=== PATIENT | female | born 1955 | race Caucasian/White ===

== ENCOUNTER 2020-11-06 17:20 | Emergency (ER) | payer OTHER, MEDICARE ==
[~2020-11-06] VITALS: Ht 160 cm; Wt 75.0 kg
[2020-11-06] MEDS ORDERED: KETOROLAC 60MG 2ML VIAL IM ONE (17:45)
[2020-11-06] MEDS ORDERED: diazePAM 10MG/2ML SYRINGE (J3360 PER 5MG) IM ONE (17:45)
[2020-11-06] MEDS ORDERED: DICL50TAB PO (18:03)
[2020-11-06] MEDS ORDERED: PROG1CAP9 PO (18:03)
[2020-11-06] MEDS ORDERED: SYNT100T PO (18:03)
[2020-11-06] MEDS ORDERED: SOMA250T PO (19:12)
[2020-11-06 19:18] VITALS: BP 160/72
== END 2020-11-06 19:54 | disposition home or self-care (01) ==
LOC: EDBD 17:20 → M ED 17:20
DX: M54.31 Sciatica, right side (principal)
CPT/HCPCS: 96372; 99284; J1885; J3360